=== PATIENT | female | born 1995 | race Caucasian/White ===

== ENCOUNTER 2016-05-22 15:09 | Emergency (ER) | payer OTHER ==
[~2016-05-22] VITALS: Ht 162.6 cm; Wt 62.0 kg
[2016-05-22 15:11] VITALS: BP 120/74; PULSE 78; RESP 14; TEMP 98; O2SAT 99
--- NOTE | 2016-05-22 16:02 | PD ---
HPI Chief Complaint: Pain: Acute or Chronic Time Seen by Provider: 16:02 Travel History International Travel<30 days: No Contact w/Intl Traveler<30days: No Traveled to known affect area: No History of Present Illness HPI 20-year-old female presents to the emergency department with pain that started to her right upper back over her scapula and now has come to her right chest. The pain started on Friday. Denies injury or strain. She says it's getting worse. The pain is worse with palpation to the upper back and right upper chest , coughing, sneezing, taking a deep breath, movement of her right arm in certain positions. Reports being sick with a cold prior to onset of symptoms but denies current nasal congestion, ear pain, sore throat, cough. Denies fever , chills, nausea, vomiting, abdominal pain, shortness of breath. Denies rash. Denies history of DVT PE. Denies leg edema. Is currently taking oral contraceptives. Traveled by plane approximately 2 hours on Friday, but pain started prior to the plane ride. Denies hemoptysis. Denies heart palpitations. Has taken Tylenol with minimal relief of symptoms. Has also tried Biofreeze to her right upper back with minimal relief of symptoms. No known allergies. Denies significant past medical history. Patient is down here on spring. Primary care provider at home. No other modifying factors or associated signs and symptoms. COUNT INCLUDES THE [facility] Past Medical History ?: Not LMP: 05/09/16 Social History Tobacco Use: No Allergies-Medications (Allergen,Severity, Reaction): Coded Allergies: No Known Allergies (Unverified , 05/22/16) Reported Meds & Prescriptions Reported Meds & Active Scripts Active Ibuprofen 800 Mg Tab 800 Mg PO Q6HR PRN Reported Microgestin 1.5/30 (Norethindrone-Ethinyl Estradiol) 1.5-30 Mg-Mcg Tab 1 Tab PO DAILY Review of Systems Except as stated in HPI: all other systems reviewed are Neg Physical Exam Narrative GENERAL: Well-nourished, well-developed female patient, in no acute distress; afebrile, nontoxic-appearing SKIN: Warm and dry. No rash noted to the right upper back or chest wall. HEAD: Atraumatic. Normocephalic. EYES: Pupils equal and round. No scleral icterus. No injection or drainage. ENT: Mucosa pink and moist. NECK: Trachea midline. CHEST: Reproducible chest wall tenderness to the right upper chest and midline over the sternum; no crepitance or deformity. No retractions or use of accessory muscles. CARDIOVASCULAR: Regular rate and rhythm. No murmur appreciated. 3+ radial pulses and equal. RESPIRATORY: No accessory muscle use. Clear to auscultation. Breath sounds equal bilaterally. GASTROINTESTINAL: Abdomen soft, non-tender, nondistended. Hepatic and splenic margins not palpable. Bowel sounds are active 4 quadrants. MUSCULOSKELETAL: Reproducible tenderness to the right upper back over the scapular area. No obvious deformities. No clubbing. No cyanosis. No leg edema. NEUROLOGICAL: Awake and alert. Oriented 3. No obvious cranial nerve deficits. Motor grossly within normal limits. Normal speech. Moves all extremities. 5/5 strength to all extremities. PSYCHIATRIC: Appropriate mood and affect; insight and judgment normal. Data Data Last Documented VS Vital Signs Date Time Temp Pulse Resp B/P Pulse Ox O2 Delivery O2 Flow Rate FiO2 05/22/16 15:11 98.0 78 14 120/74 99 Room Air Orders Chest, Single Ap (05/22/16 15:57) Ibuprofen (Motrin) (05/22/16 16:15) Methocarbamol (Robaxin) (05/22/16 16:15) Electrocardiogram (05/22/16 16:10) MDM Medical Decision Making Medical Screen Exam Complete: Yes Emergency Medical Condition: Yes Medical Record Reviewed: Yes Differential Diagnosis Costochondritis, pleuritic chest pain, musculoskeletal chest pain Narrative Course 20-year-old female with right chest pain and right upper back pain that is reproducible on physical exam. Back pain started on Friday prior to a two- hour travel on a plane. The pain has now started in her right upper chest. Patient is in no acute distress and her oxygen saturation is 99% on room air. Pain is worse with deep breathing, sneezing, coughing, movement. She is on oral contraceptives. The patient denies history of PE or DVT; denies recent surgery or trauma, hemoptysis, and leg edema. The patient has no present criteria for pulmonary embolism; using the PERC rule for pulmonary embolism there is no need for further workup for PE. Chest x-ray and EKG ordered. Ibuprofen ordered. I suspect the patient's findings are consistent with musculoskeletal pain. 1701: Chest x-ray concludes no acute disease. EKG with normal sinus rhythm; without ST elevation or depression. Patient discussed with Dr. Monge, my attending physician, and he agrees pain is musculoskeletal the patient was treated with NSAIDs outpatient. Ibuprofen prescribed for home. Patient verbalizes understanding and agreement with treatment plan. Patient is medically cleared and stable for discharge. Discussed reasons to return to the emergency department. Instructed patient to follow up with primary care provider. Patient agrees with treatment plan. The patients vital signs are stable and the patient is stable for outpatient follow-up and treatment. Patient discharged home, stable and in no acute distress. Diagnosis Primary Impression: Chest wall pain Referrals: Primary Care Physician Patient Instructions: Chest Wall Pain (ED), General Instructions Departure Forms: Tests/Procedures, Work Release Enter return to work date: May 23, 2016 Additional Instructions: Ibuprofen or Tylenol as directed and as needed to reduce pain Heating pad and/or ice to affected area to reduce pain Avoid aggravating activities; increase activity as tolerated Gentle stretching to the affected muscle may be helpful Follow-up with a primary care provider Return to the emergency department immediately with worsening of symptoms Med/Other Pt SpecificInfo: Prescription(s) given Scripts Methocarbamol (Robaxin)500 Mg [id number] Mg PO QID PRN (MUSCLE SPASM) #30 TAB Ref 0 Prov:Amparo Hewitt 05/22/16 Ibuprofen 800 Mg [id number] Mg PO Q6HR PRN (PAIN) #30 TAB Ref 0 Prov:Amparo Hewitt 05/22/16 Disposition: 01 DISCHARGE HOME Condition: Stable Amparo Hewitt May 22, 2016 16:02
[2016-05-22] MEDS ORDERED: NORE-44 PO (16:12)
[2016-05-22] MEDS ORDERED: IBUPROFEN 800 MG TAB PO ONE (16:15)
[2016-05-22] MEDS ORDERED: METHOCARBAMOL 500 MG TAB PO ONE (16:15)
[2016-05-22] MEDS ORDERED: IBUP800T23 PO (16:41)
--- NOTE | 2016-05-22 16:59 | RADRPT ---
EXAM DATE/TIME: 05/22/2016 16:33 [facility] COMPARISON: No previous studies available for comparison. INDICATIONS : Chest pain for 4 days. MEDICAL HISTORY : None. SURGICAL HISTORY : None. ENCOUNTER: Initial ACUITY: 4 - 6 days PAIN SCORE: 5/10 LOCATION: chest FINDINGS: A single view of the chest demonstrates the lungs to be symmetrically aerated without evidence of mas s, infiltrate or effusion. The cardiomediastinal contours are unremarkable. Osseous structures are intact. CONCLUSION: No acute disease. Trino Foster MD on May 22, 2016 at 16:57 Board Certified Radiologist. This report was verified electronically.
[2016-05-22] MEDS ORDERED: ROBA500T PO (17:08)
--- NOTE | 2016-05-23 14:02 | EKG ---
Date Performed: 05/22/2016 Time Performed: 16:48:26 PTAGE: 20 years EKG: Sinus rhythm MARKED RIGHT AXIS DEVIATION MODERATE T-WAVE ABNORMALITY, CONSIDER ANTERIOR ISCHEMIA ABNORMAL ECG NO PREVIOUS TRACING DOCTOR: Reinier Maldonado Interpretating Date/Time 05/23/2016 13:55:39
== END 2016-05-22 17:25 | disposition home or self-care (01) ==
LOC: NETRI 15:09
DX: R07.89 Other chest pain (principal); R94.31 Abnormal electrocardiogram [ECG] [EKG]
CPT/HCPCS: 71010; 93005